=== PATIENT | male | born 1955 | race Caucasian/White ===

== ENCOUNTER 2018-03-02 09:52 | Outpatient (CLI) | payer MEDICARE, OTHER ==
--- NOTE | 2018-03-02 12:19 | ULT ---
ABDOMINAL ULTRASOUND: INDICATIONS: Assess for abdominal wall hernia. Abdominal pain. FINDINGS: The exam is limited due to body habitus and bowel gas. The gallbladder was imaged and appears unrema rkable with no evidence of gallstones. The common duct is of normal caliber. The liver is echogenic , suggesting fatty infiltration, and is poorly evaluated. The spleen appears unremarkable. The aort a and IVC are obscured. The pancreas is obscured. The kidneys are imaged. There is no evidence of hydronephrosis. There is a 5 cm cyst, which arises from the lower pole of the right kidney. The abdominal wall is evaluated. Just superior and to the left of the umbilicus is a localized fluid collection in the subcutaneous tissues of the abdomen, which measures approximately 2 cm x 2 cm. Th is could potentially represent a fluid-filled hernia sac, although this cannot be confirmed with ultr asound due to the body habitus. An abdominal wall defect could not be confirmed. IMPRESSION: 1. There is a localized fluid collection in the subcutaneous tissues of the abdomen, superior and to the left of the umbilicus. Suggest further evaluation with abdominopelvic CT. 2. Abdominal ultrasound is limited, as noted above. There is a right renal cyst identified, and the re is evidence of fatty infiltration of the liver, as noted above. POS: [facility]
== END 2018-03-02 09:53 | disposition home or self-care (01) ==
LOC: SCSULT 09:52
PROVIDERS: ATTEND Family Medicine
DX: K43.9 Ventral hernia without obstruction or gangrene (principal); K76.0 Fatty (change of) liver, not elsewhere classified; N28.1 Cyst of kidney, acquired
CPT/HCPCS: 76700

== ENCOUNTER 2018-03-11 09:30 | Outpatient (CLI) | payer MEDICARE, OTHER ==
--- NOTE | 2018-03-11 11:45 | CT ---
NONCONTRAST CT ABDOMEN AND PELVIS: Date: 03/11/18 HISTORY: Hernia of abdominal wall. COMPARISON: Abdominal ultrasound on 03/02/18. FINDINGS: Lack of intravenous contrast does limit sensitivity for evaluation of the parenchymal organs. There i s minimal atelectasis present at each lung base. The liver demonstrates diminished attenuation likely attributable to diffuse fatty infiltration. Ther e is a hypodense 1.8 cm lesion seen within the inferior aspect of the right hepatic lobe, which is di fficult to further characterize on this exam. Due to difficulty and visualization of the liver on je or abdominal ultrasound, this was not imaged on that exam. A 5.1 cm exophytic inferior pole right renal cystic lesion is seen, shown to represent a cyst on rece nt abdominal ultrasound. The spleen, pancreas, bilateral adrenal glands, left kidney, and decompressed urinary bladder demonst rate a normal CT appearance. There is colonic diverticulosis. A small amount of retained fecal material is seen throughout the col on. The appendix is visualized and normal in caliber. There is a small, fat-containing umbilical hernia. Minimal vascular calcifications are seen in the abdominal aorta and involving the iliac arteries. Multilevel degenerative changes are seen in the lumbar spine. Bilateral pars defects are seen at L5 with Grade I anterolisthesis of L5 on S1. IMPRESSION: 1. Hypodense right hepatic lobe lesion which cannot be further characterized on this examination. Th is was not seen on prior ultrasound exam as this was unable to be visualized due to density of the li mariah and difficulty in imaging on ultrasound exam. Follow-up CT examination with IV contrast is recomm ended. 2. Diffuse fatty infiltration of the liver. 3. Inferior pole right renal cyst. 4. Fat-containing umbilical hernia. 5. Colonic diverticulosis. 6. Spondylolisthesis lumbosacral junction. 7. Partial visualization postsurgical changes proximal left femur. POS: [facility]
== END 2018-03-11 09:31 | disposition home or self-care (01) ==
LOC: BICCT 09:30
PROVIDERS: ATTEND Family Medicine
DX: K43.9 Ventral hernia without obstruction or gangrene (principal); K76.9 Liver disease, unspecified; K76.0 Fatty (change of) liver, not elsewhere classified; N28.1 Cyst of kidney, acquired; K42.9 Umbilical hernia without obstruction or gangrene; M43.17 Spondylolisthesis, lumbosacral region; K57.32 Diverticulitis of large intestine without perforation or abscess without bleeding; Z98.890 Other specified postprocedural states
CPT/HCPCS: 74176

== ENCOUNTER 2018-10-20 13:29 | Outpatient (CLI) | payer MEDICARE, OTHER ==
[2018-10-20 15:12] LABS: #Basophils 0.1 thou/uL (0.0-0.2); #Eosinphils 0.1 thou/uL (0.0-0.7); #Lymphocytes 1.3 thou/uL (1.20-3.40); #Monocytes 0.8 thou/uL (0.11-0.59); #Neutrophils 6.5 thou/uL (1.40-6.50); %Basophils 0.7 % (0.0-1.0); %Eosinophils 0.8 % (0.0-10.0); %Lymphocytes 15.2 % (21.0-51.0); %Neutrophils 74.3 % (42.0-75.0); Hemoglobin 13.8 g/dL (14.0-18.0); Mean Corpuscular HGB CONC 33.8 g/dL (32.0-36.0); Mean Corpuscular Volume 97.7 fL (78.0-98.0); Mean Platelet Volume 7.7 fL (7.4-10.4); Platelet Count 275 thou/uL (130-400); RBC Distribution Width 11.2 % (11.5-14.5); Red Blood Cell (RBC) Count 4.17 mill/uL (4.70-6.10); White Blood Cell (WBC) Count 8.7 thou/uL (4.8-10.8)
[2018-10-20 15:33] LABS: Anion Gap 15 mmol/L (10-20); BUN (Urea Nitrogen) 18 mg/dL (8.4-25.7); Calc. Creatinine Clearance 0 mL/min (70-130); Calcium 9.3 mg/dL (7.8-10.44); Carbon Dioxide 23 mmol/L (23-31); Chloride 96 mmol/L (98-107); Estimated GFR-MDRD 72; Glucose 97 mg/dL (80-115); Potassium 4.3 mmol/L (3.5-5.1); Sodium 130 mmol/L (136-145)
== END 2018-10-20 13:30 | disposition home or self-care (01) ==
LOC: LABBT 13:29
PROVIDERS: ATTEND Specialist
DX: Z01.818 Encounter for other preprocedural examination (principal); K42.9 Umbilical hernia without obstruction or gangrene; E66.01 Morbid (severe) obesity due to excess calories
CPT/HCPCS: 80048; 85025; 93005; 93010

== ENCOUNTER 2018-10-21 12:28 | Observation (INO) | payer MEDICARE, OTHER ==
[2018-10-21] MEDS ORDERED: Enoxaparin Sodium 40 MG/0.4 ML SYRINGE ONE (12:53)
[2018-10-21] MEDS ORDERED: Enoxaparin Sodium 100 MG/ML SYRINGE ONE (12:53)
--- NOTE | 2018-10-21 12:59 | RAD ---
Exam: Chest one view HISTORY:Dyspnea. Eval for atrial fibrillation. Comparison: 08/16/2014 FINDINGS: Cardiac silhouette: Normal Pulmonary vessels: Normal Costophrenic angles: Clear LUNGS: No masses or consolidation. Pneumothorax: None Osseous abnormalities: None IMPRESSION: No acute cardiopulmonary process.
[2018-10-21 13:12] LABS: #Basophils 0.1 thou/uL (0.0-0.2); #Eosinphils 0.1 thou/uL (0.0-0.7); #Lymphocytes 1.2 thou/uL (1.20-3.40); #Monocytes 0.8 thou/uL (0.11-0.59); #Neutrophils 6.7 thou/uL (1.40-6.50); %Basophils 0.6 % (0.0-1.0); %Eosinophils 0.6 % (0.0-10.0); %Lymphocytes 13.4 % (21.0-51.0); %Monocytes 9.4 % (0.0-10.0); Mean Corpuscular HGB CONC 33.7 g/dL (32.0-36.0); Mean Corpuscular Hemoglobin 32.9 pg (27.0-31.0); Mean Corpuscular Volume 97.4 fL (78.0-98.0); Mean Platelet Volume 7.5 fL (7.4-10.4); Platelet Count 275 thou/uL (130-400); RBC Distribution Width 11.3 % (11.5-14.5); Red Blood Cell (RBC) Count 4.26 mill/uL (4.70-6.10); White Blood Cell (WBC) Count 8.8 thou/uL (4.8-10.8)
[2018-10-21] MEDS ORDERED: Enoxaparin Sodium 60 MG/0.6 ML SYRINGE ONE (13:15)
[2018-10-21 13:37] LABS: ALT (SGPT) 26 U/L (8-55); AST (SGOT) 25 U/L (5-34); Albumin 4.4 g/dL (3.4-4.8); Alkaline Phosphatase 52 U/L (40-150); Anion Gap 12 mmol/L (10-20); BUN (Urea Nitrogen) 15 mg/dL (8.4-25.7); Bilirubin, Total 0.6 mg/dL (0.2-1.2); Calc. Creatinine Clearance 0 mL/min (70-130); Calcium 9.8 mg/dL (7.8-10.44); Carbon Dioxide 25 mmol/L (23-31); Chloride 97 mmol/L (98-107); Estimated GFR-MDRD 69; Globulin 3.1 g/dL (2.4-3.5); Glucose 107 mg/dL (80-115); Potassium 4.4 mmol/L (3.5-5.1); Protein, Total 7.5 g/dL (5.8-8.1); Sodium 130 mmol/L (136-145)
--- NOTE | 2018-10-21 14:53 | HP ---
PRIMARY CARE PHYSICIAN: Jessa Renteria MD/[facility]. REASON FOR ADMISSION: New onset atrial fibrillation. HISTORY OF PRESENT ILLNESS: A 63-year-old male, who has no significant past medical history other than hypertension as well as morbid obesity, who had a regular preoperative electrocardiogram yesterday afternoon as the patient is going to go for surgery for inguinal hernia repair, and he had EKG done and he was found with an atrial fibrillation. He was advised to follow up with primary care physician. The patient saw primary care physician today and the patient was sent to ER for further treatment. The patient by himself denies any dizziness, chest pain, palpitation, orthopnea, or PND. He denies any constipation, diarrhea, melena, or hematochezia. He occasionally feels intermittent episode of lightheadedness. He denies any fever or chills. He denies any excessive caffeinated products. He denies any similar problem in the past. He does not have any previous history of diabetes, stroke, or CHF symptoms. In the emergency room, he was having atrial fibrillation with rapid ventricular response and heart rate was in 120s. He was given only one dose of Cardizem bolus and after that his rate was under control. He was also given Lovenox 1 mg/kg and subsequently, we decided to keep this patient in the hospital for further evaluation. REVIEW OF SYSTEMS: CONSTITUTIONAL: Negative for weight loss or gain, ability to conduct usual activities. SKIN: Negative for rash, itching. EYES: Negative for double vision, pain. ENT/MOUTH: Negative for nose bleeding, neck stiffness, pain, tenderness. CARDIOVASCULAR: Negative for palpitations, dyspnea on exertion, orthopnea. RESPIRATORY: Negative for shortness of breath, wheezing, cough, hemoptysis, fever or night sweats. GASTROINTESTINAL: Negative for poor appetite, abdominal pain, heartburn, nausea, vomiting, constipation, or diarrhea. GENITOURINARY: Negative for urgency, frequency, dysuria, nocturia. MUSCULOSKELETAL: Negative for pain, swelling. NEUROLOGIC/PSYCHIATRIC: Negative for anxiety, depression. ALLERGY/IMMUNOLOGIC: Negative for skin rash, bleeding tendency. Please see my HPI for pertinent positives and negative. All other review of systems reviewed and negative except as mentioned in the HPI. PAST MEDICAL HISTORY: Hypertension and morbid obesity. PAST SURGICAL HISTORY: Right leg surgery 7 times and left femur surgery x2. PAST PSYCHIATRIC HISTORY: Anxiety, depression, and posttraumatic stress disorder. ALLERGIES: ERYTHROMYCIN. SOCIAL HISTORY: The patient drinks alcohol socially. He denies any smoking. He denies any other illicit drug abuse. FAMILY HISTORY: No strong family history of premature coronary artery disease. The patient's mother had breast cancer, father had diabetes, and sister had stroke. EMERGENCY ROOM COURSE: The patient has received Cardizem 20 mg bolus and Lovenox 1 mg/kg. CURRENT HOME MEDICATIONS: The patient did not bring his home medication, but the patient is taking blood pressure medication and his anxiety medication. Once he gets his home medication, then we will review and update in the chart. PHYSICAL EXAMINATION: VITAL SIGNS: Currently, blood pressure 140/117, pulse 120 and irregular, respiratory rate 18, temperature 98.5, saturation 97% on room air, weight 147 kg. GENERAL: The patient is currently alert and oriented. No acute distress. HEENT: Head; normocephalic and atraumatic. Eyes; pupils round and reactive to light. Extraocular muscle intact. ENT; oropharynx within normal limits. Moist mucous membranes. No oral lesion. No pharyngeal erythema. No exudate. NECK: Supple. No JVD. No thyromegaly. No carotid bruit. No jugular venous distention. LUNGS: Clear to auscultation without any rhonchi or rales. CARDIAC: S1 and S2 irregularly irregular. No murmur. No gallop. No rub. ABDOMEN: Morbid obesity limiting examination. No organomegaly. No mass. No suprapubic tenderness. BACK: Unremarkable. No CVA tenderness. EXTREMITIES: Upper extremities, passive movement of all joints are normal. Lower extremities, no edema. Good distal pulsation. No calf tenderness. SKIN: No skin rash. HEMATOLOGICAL SYSTEM: No lymphadenopathy. PSYCHIATRIC: Normal affect. SIGNIFICANT LABORATORY DATA: Chest x-ray based on my review, no acute cardiopulmonary process. CBC: WBC 8.8, hemoglobin 14.0, platelet 275. BMP: Sodium 130, potassium 4.4, chloride 97, carbon dioxide 25, BUN 15, creatinine 1.08, glucose 107, calcium 9.8. LFT: AST 25, ALT 26, alkaline phosphatase 52, albumin 4.4. Troponin negative. BNP 142.3. EKG is showing atrial fibrillation with rapid ventricular response. ASSESSMENT AND PLAN: 1. New onset atrial fibrillation with rapid ventricular response, rate controlled with Cardizem bolus. At this point, we will continue with Cardizem CD 120 mg p.o. daily. The patient has age 63 as well as hypertension, so he is at intermediate risk for stroke. He will need chronic anticoagulation therapy. We will start with Lovenox 1 mg/kg while in hospital and ultimately, he will be converted to Eliquis 5 mg p.o. b.i.d. upon discharge. He will need echocardiography as well as Cardiology evaluation and Cardiology followup. We will check TSH and free T4. We will also check urinalysis and urine drug screen. 2. Hyponatremia, unclear etiology. We will check TSH, random cortisol, plasma and urine osmolality, urine sodium and urine creatinine for further evaluation and we will repeat BMP tomorrow. 3. Morbid obesity. Dietary education given. Weight loss education given. Healthy lifestyle measure discussed with the patient. 4. Hypertension. Once the patient brings his home medication, then we will review and start selected home blood pressure medication. 5. Inguinal hernia. The patient is planned for surgical repair for hernia as an outpatient basis. 6. Anxiety, depression, and posttraumatic stress disorder. Once the patient brings his home medication, then we will restart his selected home medication. 7. Deep venous thrombosis prophylaxis. The patient is already on Lovenox therapy. 8. Gastrointestinal prophylaxis, Pepcid 20 mg p.o. b.i.d. CODE STATUS: The patient is full code. The patient does not have any surrogate decision maker. DISPOSITION PLAN: Based on clinical course, we are expecting the patient to stay in hospital 24 to 48 hours. Plan of care discussed with the patient in detail. Job ID: [id number]
[2018-10-21] MEDS ORDERED: Senokot S 8.6-50 MG TAB PO PRN (15:41)
[2018-10-21] MEDS ORDERED: Ondansetron ODT 4 MG TAB PO PRN (15:41)
[2018-10-21] MEDS ORDERED: Zolpidem Tartrate 5 MG TAB PO PRN (15:41)
[2018-10-21] MEDS ORDERED: Calcium Carbonate 500 MG ChewTAB PO PRN (15:41)
[2018-10-21] MEDS ORDERED: HYDROcodone/Acetaminophen 5/325 mg Tablet PO PRN (15:41)
[2018-10-21] MEDS ORDERED: Ondansetron PF 4 MG/2 ML Vial IVP PRN (15:41)
[2018-10-21] MEDS ORDERED: Bisacodyl 10 MG SUPP PR PRN (15:41)
[2018-10-21] MEDS ORDERED: Acetaminophen 325 MG TAB PO PRN (15:41)
[2018-10-21] MEDS ORDERED: Loperamide HCl 2 MG CAP PO PRN (15:41)
[2018-10-21 16:04] VITALS: BMI 47.2
[2018-10-21 16:36] LABS: Troponin I Less than 0.010 ng/mL (< 0.028)
[2018-10-21 16:51] LABS: Free T4 (Free Thyroxine) 0.96 ng/dL (0.70-1.48); Thyroid Stimulating Hormone 1.4133 uIU/mL (0.35-4.94)
[2018-10-21 18:11] LABS: Bilirubin Negative (Negative); Blood, Urine Negative (Negative); Clarity CLEAR (Clear); Glucose, Urine (Dipstick) Negative (Negative); Leukocyte Negative (Negative); Nitrite Negative (Negative); Protein, Urine (Dipstick) Negative (Neg-Trace); Specific Gravity, Urine 1.014 (1.002-1.036); Urobilinogen 0.2 mg/dL (0.2-1.0)
[2018-10-21 18:14] LABS: Bacteria/HPF None Seen HPF (None Seen); Hyaline Casts/LPF 0-3 HYALINE CAST LPF (0-3 Hyaline); RBC/HPF None Seen HPF (0-3); Squamous Epithelial None Seen HPF (0-3); WBC/HPF None Seen HPF (0-3)
[2018-10-21 18:31] LABS: Creatinine, Urine 89.08 mg/dL (63-166)
[2018-10-21 20:03] LABS: Troponin I 0.011 ng/mL (< 0.028)
[2018-10-21] MEDS: Famotidine 20 MG TAB PO SCH (20:32)
[2018-10-21] MEDS: Morphine ER 30 MG TAB PO SCH (20:32)
[2018-10-21] MEDS: Mirtazapine 30 MG TAB PO SCH (20:34)
[2018-10-21] MEDS: Prazosin HCl 1 MG CAP PO SCH (20:36)
[2018-10-21] MEDS ORDERED: Enoxaparin Sodium 80 MG/0.8 ML SYRINGE SC SCH (21:00)
[2018-10-21] MEDS ORDERED: Enoxaparin Sodium 120 MG/0.8 ML SYRINGE SC SCH (21:00)
[2018-10-21] MEDS ORDERED: Enoxaparin Sodium 100 MG/ML SYRINGE SC SCH (21:00)
--- NOTE | 2018-10-22 00:29 | CON ---
DATE OF CONSULTATION: HISTORY OF PRESENT ILLNESS: The patient is a 63-year-old gentleman who presents for evaluation of dizziness and a rapid irregular heart rhythm. The patient has no known cardiac history. The patient was scheduled and to undergo surgery and underwent a preoperative electrocardiogram. He was found to be in atrial fibrillation. The patient denies having any palpitations. He states that he does have occasional dizziness. The patient was noted to have a rapid ventricular rate, and admitted for further evaluation. The patient denies having any chest discomfort. The patient denies having any dyspnea. The patient has a strong family history of atrial fibrillation. PAST MEDICAL HISTORY: 1. Hypertension. 2. Chronic pain. 3. PTSD. 4. Depression. PAST SURGICAL HISTORY: 7 surgeries on his right leg and left femur surgery. ALLERGIES: ERYTHROMYCIN. SOCIAL HISTORY: He is a nonsmoker. He denies excessive alcohol use. MEDICATIONS: 1. Wellbutrin 100 daily. 2. Lisinopril 40 daily. 3. HCTZ 25 daily. 4. Morphine 30 mg 2 tablets daily. 5. Prazosin 1 mg 3 times daily. 6. Aspirin 81 daily. REVIEW OF SYSTEMS: Ten-point system otherwise unremarkable except for chronic pain. FAMILY HISTORY: There is a strong family history of atrial fibrillation. Father had a myocardial infarction. PHYSICAL EXAMINATION: GENERAL: This is an obese gentleman, in no acute distress. VITAL SIGNS: Blood pressure of 153/58. NECK: Showed no jugular distention. LUNGS: Clear to auscultation HEART: Irregular rate and rhythm. Normal S1, S2. ABDOMEN: Distended. EXTREMITIES: Show trace edema. VASCULAR: Radial pulses 2+. LABORATORY DATA: Sodium 130, potassium 4.4, chloride 97, bicarbonate 25, BUN 15 , creatinine 1.0, troponin less than 0.01. White blood cell count is 8.8, hemoglobin 14.0, hematocrit 41.5, platelet 275. IMAGING: EKG revealed atrial fibrillation with a rapid ventricular response and poor R-wave progression. IMPRESSION: 1. New onset atrial fibrillation. 2. Hypertension. 3. Morbid obesity. 4. Post-traumatic stress disorder. This gentleman presents with new onset atrial fibrillation. He states he was treated with IV Cardizem and started on Lovenox from a cardiac standpoint. He has a CHADS-VASc score of 2. The patient will be started on Xarelto. The has been started on Cardizem. We will follow this patient with you through his hospitalization. Job ID: [id number] MTDD
[2018-10-22 05:21] LABS: #Eosinphils 0.1 thou/uL (0.0-0.7); #Monocytes 0.7 thou/uL (0.11-0.59); #Neutrophils 3.7 thou/uL (1.40-6.50); %Basophils 0.4 % (0.0-1.0); %Eosinophils 1.3 % (0.0-10.0); %Neutrophils 56.2 % (42.0-75.0); Hemoglobin 12.8 g/dL (14.0-18.0); Mean Corpuscular HGB CONC 33.9 g/dL (32.0-36.0); Mean Corpuscular Hemoglobin 32.8 pg (27.0-31.0); Mean Corpuscular Volume 96.6 fL (78.0-98.0); Mean Platelet Volume 7.7 fL (7.4-10.4); Platelet Count 239 thou/uL (130-400); RBC Distribution Width 11.3 % (11.5-14.5); White Blood Cell (WBC) Count 6.6 thou/uL (4.8-10.8)
[2018-10-22 05:38] LABS: Anion Gap 9 mmol/L (10-20); BUN (Urea Nitrogen) 13 mg/dL (8.4-25.7); Calc. Creatinine Clearance 200 mL/min (70-130); Calcium 8.8 mg/dL (7.8-10.44); Carbon Dioxide 25 mmol/L (23-31); Chloride 97 mmol/L (98-107); Estimated GFR-MDRD 88; Glucose 87 mg/dL (80-115); Potassium 3.7 mmol/L (3.5-5.1); Sodium 127 mmol/L (136-145)
[2018-10-22] MEDS: Rivaroxaban 10 MG TAB PO SCH (06:07)
[2018-10-22] MEDS: Bupropion 100 MG SR TAB PO SCH (08:34)
[2018-10-22] MEDS: Famotidine 20 MG TAB PO SCH ×2 (08:34→20:52)
[2018-10-22] MEDS: Lisinopril 20 MG TAB PO SCH (08:35)
[2018-10-22] MEDS: Morphine ER 30 MG TAB PO SCH ×2 (08:35→20:52)
[2018-10-22] MEDS ORDERED: Aspirin 325 mg Enteric Coated Tablet PO SCH (09:00)
[2018-10-22] MEDS ORDERED: Hydrochlorothiazide 25 MG TAB PO SCH (09:00)
--- NOTE | 2018-10-22 11:44 | PDOC.PN ---
- Subjective Encounter Start Date: 10/22/18 Encounter Start Time: 11:41 Subjective: Admitted for evaluation of atrial fib RVR found during pre op eval EKG -: Admitted to occasional dizziness byt denied palpitation/chest pain. -: No new complaints - Objective Resuscitation Status - Order Detail: 10/21/18 14:23 Resuscitation Status Routine Resuscitation Status: FULL: Full Resuscitation Vital Signs & Weight: Vital Signs (12 hours) Temp Pulse Resp BP BP Pulse Ox 10/22/18 11:28 97.8 F 84 20 116/72 96 10/22/18 08:35 119/86 10/22/18 08:34 63 119/86 10/22/18 07:20 97.7 F 63 20 119/86 96 10/22/18 04:47 98.0 F 80 18 110/70 99 Weight Weight 367 lb 8 oz I&O: 10/21/18 10/22/18 10/23/18 06:59 06:59 06:59 Intake Total 1030 Output Total 1950 Balance -920 Result Diagrams: 10/22/18 04:52 10/22/18 04:52 Phys Exam - Physical Examination Constitutional: NAD obese HEENT: PERRLA, moist MMs Neck: no JVD, supple Respiratory: no wheezing, no rales, no rhonchi, clear to auscultation bilateral Cardiovascular: no significant murmur, irregular Gastrointestinal: soft, non-tender, no distention, positive bowel sounds morbidly obese Musculoskeletal: no edema, pulses present Neurological: non-focal, normal sensation, moves all 4 limbs Psychiatric: A&O x 3 Dx/Plan (1) Atrial fibrillation with rapid ventricular response Code(s): I48.91 - UNSPECIFIED ATRIAL FIBRILLATION Status: Acute Comment: Rate controlled adequately with cardizem. Awaiting Echo. Now on anticoagulation with xarelto. Etiology unclear - ? hyponatremia +/- wellbutrin +/- Possible CIELO (2) Morbid obesity with BMI of 45.0-49.9, adult Code(s): E66.01 - MORBID (SEVERE) OBESITY DUE TO EXCESS CALORIES; Z68.42 - BODY MASS INDEX (BMI) 45.0-49.9, ADULT Status: Acute (3) SIADH (syndrome of inappropriate ADH production) Status: Acute Comment: Serum osmolality of 279 against urine osmolality of > 400. patient on HCTZ admitted to very liberal water intake (4) Hyponatremia Code(s): E87.1 - HYPO-OSMOLALITY AND HYPONATREMIA Status: Acute Comment: Serum sodium went down from 130 to 127 today (5) Chronic pain Code(s): G89.29 - OTHER CHRONIC PAIN Status: Chronic (6) Hypertension Code(s): I10 - ESSENTIAL (PRIMARY) HYPERTENSION Status: Chronic - Plan DC HCTZ, Start fluid restriction. -: Recheck serum sodium in the am. -: Awaiting Echo. -: Continue cardizem and anticoagulation. -: Change patient to in patient. * .
[2018-10-22] MEDS: Prazosin HCl 1 MG CAP PO SCH (20:53)
[2018-10-22] MEDS: Mirtazapine 30 MG TAB PO SCH (20:53)
[2018-10-23] MEDS: Rivaroxaban 10 MG TAB PO SCH (06:04)
[2018-10-23 06:54] LABS: Anion Gap 9 mmol/L (10-20); BUN (Urea Nitrogen) 14 mg/dL (8.4-25.7); Calc. Creatinine Clearance 193 mL/min (70-130); Calcium 9.4 mg/dL (7.8-10.44); Carbon Dioxide 26 mmol/L (23-31); Chloride 101 mmol/L (98-107); Estimated GFR-MDRD 85; Glucose 93 mg/dL (80-115); Magnesium 2.1 mg/dL (1.6-2.6); Potassium 4.1 mmol/L (3.5-5.1); Sodium 132 mmol/L (136-145)
[2018-10-23 08:07] VITALS: BP 131/75; TEMP 97.7
[2018-10-23] MEDS: Lisinopril 20 MG TAB PO SCH (08:51)
[2018-10-23] MEDS: Bupropion 100 MG SR TAB PO SCH (08:51)
[2018-10-23] MEDS: Morphine ER 30 MG TAB PO SCH (08:51)
[2018-10-23] MEDS: Famotidine 20 MG TAB PO SCH (08:51)
== END 2018-10-23 10:36 | disposition home or self-care (01) ==
LOC: ERS 12:28 → 2SW 14:10
PROVIDERS: ADMIT Internal Medicine; ATTEND Internal Medicine
DX: I48.91 Unspecified atrial fibrillation (principal); I10 Essential (primary) hypertension; E87.1 Hypo-osmolality and hyponatremia; F43.10 Post-traumatic stress disorder, unspecified; F41.8 Other specified anxiety disorders; F32.9 Major depressive disorder, single episode, unspecified; E66.01 Morbid (severe) obesity due to excess calories; Z68.42 Body mass index [BMI] 45.0-49.9, adult; Z88.1 Allergy status to other antibiotic agents
CPT/HCPCS: 71045; 80048 ×2; 81001; 82570; 83735; 83880; 83930; 83935; 84300; 84439; 84484 ×2; 85025; 93005; 93306; 96372; 96374; 99285; G0378 ×2; 36415; 80053; 84443; J1650

== ENCOUNTER 2018-12-16 13:29 | Outpatient (CLI) | payer MEDICARE, OTHER ==
[2018-12-16 15:01] LABS: #Eosinphils 0.1 thou/uL (0.0-0.7); #Lymphocytes 1.6 thou/uL (1.20-3.40); #Monocytes 0.7 thou/uL (0.11-0.59); #Neutrophils 5.4 thou/uL (1.40-6.50); %Basophils 0.4 % (0.0-1.0); %Lymphocytes 20.3 % (21.0-51.0); %Monocytes 8.7 % (0.0-10.0); %Neutrophils 69.7 % (42.0-75.0); Hemoglobin 13.5 g/dL (14.0-18.0); Mean Corpuscular HGB CONC 33.6 g/dL (32.0-36.0); Mean Corpuscular Hemoglobin 31.5 pg (27.0-31.0); Mean Corpuscular Volume 93.7 fL (78.0-98.0); Platelet Count 231 thou/uL (130-400); RBC Distribution Width 11.2 % (11.5-14.5); White Blood Cell (WBC) Count 7.7 thou/uL (4.8-10.8)
[2018-12-16 15:07] LABS: INR-International Normal Ratio 1.7; PTT 40.9 SEC (22.9-36.1); Prothrombin Time 19.4 SEC (12.0-14.7)
[2018-12-16 15:31] LABS: ALT (SGPT) 17 U/L (8-55); AST (SGOT) 20 U/L (5-34); Albumin 4.2 g/dL (3.4-4.8); Alkaline Phosphatase 54 U/L (40-150); Anion Gap 11 mmol/L (10-20); BUN (Urea Nitrogen) 11 mg/dL (8.4-25.7); Bilirubin, Total 0.6 mg/dL (0.2-1.2); Calc. Creatinine Clearance 0 mL/min (70-130); Calcium 9.1 mg/dL (7.8-10.44); Carbon Dioxide 24 mmol/L (23-31); Chloride 100 mmol/L (98-107); Estimated GFR-MDRD 77; Glucose 89 mg/dL (80-115); Potassium 4.4 mmol/L (3.5-5.1); Protein, Total 7.2 g/dL (5.8-8.1); Sodium 131 mmol/L (136-145)
== END 2018-12-16 13:30 | disposition home or self-care (01) ==
LOC: LABBT 13:29
PROVIDERS: ATTEND Internal Medicine Cardiovascular Disease
DX: Z01.812 Encounter for preprocedural laboratory examination (principal); R94.39 Abnormal result of other cardiovascular function study
CPT/HCPCS: 80053; 85025; 85610; 85730

== ENCOUNTER 2018-12-23 06:00 | Day surgery (SDC) | payer MEDICARE, OTHER ==
[2018-12-16 13:45] VITALS: BMI 37.5
[2018-12-23] MEDS ORDERED: Lidocaine 1% (PF) 30 ML VIAL ONE (06:34)
[2018-12-23] MEDS ORDERED: Nitroglycerin 100MG/250ML BOT 250 ML ONE (07:29)
[2018-12-23] MEDS ORDERED: Verapamil 5 MG/2 ML VIAL ONE (07:29)
[2018-12-23] MEDS ORDERED: Heparin 10,000 UNITS/1 ML VIAL ONE (07:29)
[2018-12-23] MEDS ORDERED: Fentanyl 100 MCG/2 ML VIAL ONE (07:35)
[2018-12-23] MEDS ORDERED: Midazolam HCl 2 mg/2 ml Vial ONE (07:36)
[2018-12-23 07:37] LABS: Cardiac Risk 2.7 (Less than 4.5)
== END 2018-12-23 12:35 | disposition home or self-care (01) ==
LOC: CCL 06:00
PROVIDERS: ATTEND Internal Medicine Cardiovascular Disease
PROC: 4A023N7 Measurement of Cardiac Sampling and Pressure, Left Heart, Percutaneous Approach (ICD-10-PCS; principal; 2018-12-23)
PROC: B2001ZZ Plain Radiography of Single Coronary Artery using Low Osmolar Contrast (ICD-10-PCS; 2018-12-23)
DX: R94.39 Abnormal result of other cardiovascular function study (principal); I10 Essential (primary) hypertension; E78.00 Pure hypercholesterolemia, unspecified; E78.5 Hyperlipidemia, unspecified; E66.9 Obesity, unspecified; Z68.41 Body mass index [BMI] 40.0-44.9, adult
CPT/HCPCS: 80061; 93458; 99152; C1769; J1644; J2001; J2250; J3010

== ENCOUNTER 2021-02-16 16:07 | Emergency (ER) | payer MEDICARE, OTHER ==
[2021-02-16 16:33] LABS: #Eosinphils 0.1 thou/uL (0.0-0.7); #Lymphocytes 1.4 thou/uL (1.20-3.40); #Monocytes 0.9 thou/uL (0.11-0.59); #Neutrophils 7.6 thou/uL (1.40-6.50); %Basophils 0.4 % (0.0-1.0); %Eosinophils 0.8 % (0.0-10.0); %Lymphocytes 13.8 % (21.0-51.0); %Monocytes 8.6 % (0.0-10.0); %Neutrophils 76.3 % (42.0-75.0); Hemoglobin 14.9 g/dL (14.0-18.0); Mean Corpuscular HGB CONC 33.1 g/dL (32.0-36.0); Mean Corpuscular Hemoglobin 31.6 pg (27.0-31.0); Mean Corpuscular Volume 95.3 fL (78.0-98.0); Mean Platelet Volume 8.1 fL (7.4-10.4); Platelet Count 225 thou/uL (130-400); Red Blood Cell (RBC) Count 4.71 mill/uL (4.70-6.10); White Blood Cell (WBC) Count 9.9 thou/uL (4.8-10.8)
[2021-02-16 16:59] LABS: ALT (SGPT) 19 U/L (8-55); AST (SGOT) 20 U/L (5-34); Albumin 4.2 g/dL (3.4-4.8); Alkaline Phosphatase 64 U/L (40-110); Anion Gap 12 mmol/L (10-20); BUN (Urea Nitrogen) 21 mg/dL (8.4-25.7); Bilirubin, Total 0.4 mg/dL (0.2-1.2); Calc. Creatinine Clearance 0 mL/min (70-130); Calcium 9.4 mg/dL (7.8-10.44); Carbon Dioxide 25 mmol/L (23-31); Chloride 100 mmol/L (98-107); Globulin 4.1 g/dL (2.4-3.5); Glucose 108 mg/dL (80-115); Potassium 4.4 mmol/L (3.5-5.1); Protein, Total 8.3 g/dL (5.8-8.1); Sodium 133 mmol/L (136-145)
== END 2021-02-16 18:39 | disposition home or self-care (01) ==
LOC: ERS 16:07
DX: I48.91 Unspecified atrial fibrillation (principal); R42 Dizziness and giddiness; I10 Essential (primary) hypertension; Z79.01 Long term (current) use of anticoagulants
CPT/HCPCS: 71045; 80053; 84484; 85025; 93005